=== PATIENT | female | born 1940 | race Caucasian/White ===

== ENCOUNTER 2016-10-31 09:23 | Outpatient (RCR) | payer MEDICARE, BC ==
--- OUTSIDE RECORDS SUMMARY | 2016-08-15 08:19 | XMS REPORT | Continuity of Care Document ---
Author Author [facility] Organization [facility] Address Unknown Phone Unavailable Care Team Providers Care Pan Washer Hand Name Role Phone PCP Unavailable Source Comments Some departments are not documenting in the electronic medical record. If you do not see the information that you expected, contact Release of Information in the Health Information Management department at [phone] for further assistance in locating additional records.[facility] Active Allergies and Adverse Reactions Not on File Current Medications Not on file Active Problems Not on file Most Recent Encounters Date Type Specialty Providers Description 08/14/2016 Ancillary Radiology Outpatient, Radiologist Diagnosis unknown Orders (Primary Dx) 06/25/2016 Hospital Radiology Encounter 06/25/2016 Hospital Radiology Encounter 06/25/2016 Hospital Radiology Encounter 06/25/2016 Hospital Radiology Encounter 06/18/2016 [facility] Alfredo Soliz MD Melanoma (HCC) Encounter 05/20/2016 Hospital Radiology Encounter Social History Tobacco Use Types Packs/Day Years Used Date Never Assessed Plan of Care Health Maintenance Due Date Last Done Comments Physical (Comprehensive) 1947 Exam Pertussis Vaccine 1950 Tetanus Vaccine 1956 Shingles Vaccine 1999 Osteoporosis Screening 2004 Prevnar/Pneumovax (#1) 2004 Influenza Vaccine 07/04/2016 Results from Last [address] ABDOMEN EXTERNAL IMAGING (06/25/2016 12:45 AM) Narrative This order has been auto finalized and does not contain a result. GENERAL RAD CHEST EXTERNAL IMAGING (06/25/2016 12:30 AM)Only the most recent of 3 results within the time period is included. Narrative This order has been auto finalized and does not contain a result. PATHOLOGY REPORTS FROM OUTSIDE SCAN (06/19/2016 7:18 AM) Narrative Ordered by an unspecified provider. OUTSIDE PATHOLOGY CONSULT (06/18/2016 9:03 AM) Component Value Range PATHOLOGY REPORT [facility] [email or web address] Roberto Aragon MD, PhD, Director of Anatomic Pathology Department of Pathology and Laboratory Medicine [address] [place] [id number] Surgical Pathology Office: [phone] PATHOLOGY CONSULTATION NAME: PRATIMA FRAGA SURG PATH #: [id number] MR #: [id number] ALT ID #: LOCATION: [facility] DATE OF PROCEDURE: 06/18/2016 AGE: 75 SEX: F DATE RECEIVED: 06/18/2016 : 1940 TIME RECEIVED: 09:03 PHYSICIAN: ALFREDO SOLIZ DATE OF REPORT: 06/18/2016 COPY TO: DATE OF PRINTIN06/18/2016 ################################################## ###################### Final Diagnosis: A. 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 I agree with the diagnosis of melanoma. Melanoma synoptic reporting is listed below: Procedure type: Shave biopsy Histologic type: Nodular melanoma Maximum tumor thickness: At least 5 mm Surface ulceration: Present Dermal mitotic rate: 4/mm2 Lymph-vascular invasion: Not identified Perineural invasion: Not identified Tumor regression: Not identified Satellite lesions: Not identified Tumor stage (AJCC): T4b Attestation: By this signature, I attest that I have personally formulated the final interpretation expressed in this report and that the above diagnosis is based upon my examination of the slides and/or other material indicated in this report. +++Electronically Signed Out+++ pms/06/18/2016 Interpreted by: Omar Talley MD, Attending Physician ################################################## ###################### Material Received: A: Outside Slides x4 [id number], [employer], [address] [place] [address], [place] [address] History: 75-year-old female with a clinical history of neoplasm of uncertain behavior; suspicious irregular multi-colored macule; malignant melanoma. Gross Description: A. Received are four (4) outside slides labeled "[id number]" and a properly identified surgical pathology report from [employer], [address] [place] [address], [place] [address], [place] [address] 06/18/2016 If immunohistochemical stains and/or in situ hybridization are cited in this report, the performance characteristics were determined by the Department of [facility]ology and [facility] of the [facility] ([employer] [facility]) in compliance with CLIA'88 regulations. Some of these tests rely on the use of "analyte specific reagents" and are subject to specific labeling requirements by the FDA. Known positive and negative control tissues demonstrate appropriate staining. This testing was developed by the Department of Pathology and Laboratory [facility] of the [facility]. It has not been cleared or approved by the FDA. The FDA has determined that such clearance or approval is not necessary. NM PET/CT EXTERNAL IMAGING (05/20/2016) Narrative This order has been auto finalized and does not contain a result.
--- OUTSIDE RECORDS SUMMARY | 2016-08-22 10:52 | XMS REPORT | Continuity of Care Document ---
Author Author [facility] Organization [facility] Address Unknown Phone Unavailable Care Team Providers Care Night Worker Name Role Phone PCP Unavailable Source Comments Some departments are not documenting in the electronic medical record. If you do not see the information that you expected, contact Release of Information in the Health Information Management department at [phone] for further assistance in locating additional records.[facility] Active Allergies and Adverse Reactions Not on File Current Medications Not on file Active Problems Not on file Most Recent Encounters Date Type Specialty Providers Description 08/14/2016 Ancillary Radiology Outpatient, Radiologist Diagnosis unknown Orders (Primary Dx) 06/25/2016 Hospital Radiology Encounter 06/25/2016 Hospital Radiology Encounter 06/25/2016 Hospital Radiology Encounter 06/25/2016 Hospital Radiology Encounter 06/18/2016 [facility] Alfredo Soliz MD Melanoma (HCC) Encounter Social History Tobacco Use Types Packs/Day [...] AM) Component Value Range PATHOLOGY REPORT [facility] [email or web address] Roberto Aragon MD, PhD, Director of Anatomic Pathology Department of Pathology and Laboratory Medicine [address] [place] [id number] Surgical Pathology Office: [phone] PATHOLOGY CONSULTATION NAME: PRATIMA FRAGA SURG PATH #: [id number] MR #: [id number] ALT ID #: LOCATION: [facility] DATE OF PROCEDURE: 06/18/2016 AGE: 75 SEX: F DATE RECEIVED: 06/18/2016 : 1940 TIME RECEIVED: 09:03 PHYSICIAN: ALFREDO SOLIZ DATE OF REPORT: 06/18/2016 COPY TO: DATE OF PRINTIN06/18/2016 ################################################## ###################### Final Diagnosis: A. Left central frontal scalp ([facility], [id number]; 04.09.2016): -- Ulcerated melanoma with a Breslow [...] ###################### Material Received: A: Outside Slides x4 [id number], [employer], [address] [place] [address], [place] [address] History: 75-year-old female with a clinical history of neoplasm of uncertain behavior; suspicious irregular multi-colored macule; malignant melanoma. Gross Description: A. Received are four (4) outside slides labeled "[id number]" and a properly identified surgical pathology report from [employer], [address] [place] [address] 06/18/2016 If immunohistochemical stains and/or in situ hybridization are cited in this report, the performance characteristics were determined by the Department of Pathology and Laboratory Medicine of the [facility] ([employer] [facility]) in compliance with CLIA'88 regulations. Some of these tests rely on the use of "analyte specific reagents" and are subject to specific labeling requirements by the FDA. Known positive and negative control tissues demonstrate appropriate staining. This testing was developed by the Department of Pathology and Laboratory Medicine of the [facility]. It has not been cleared or approved by the FDA. The FDA has determined that such clearance or approval is not necessary.
[2016-08-22 17:03] LABS: BASOPHILS % (AUTO) 0 % (0-10); EOSINOPHILS # (AUTO) 0.3 10^3/uL (0.0-0.3); EOSINOPHILS % (AUTO) 4 % (0-10); LYMPHOCYTES # (AUTO) 1.1 X 10^3 (1.0-4.0); LYMPHOCYTES % (AUTO) 16 % (12-44); MEAN CORPUSCULAR HEMOGLOBIN 27 PG (25-34); MEAN CORPUSCULAR HGB CONC 32 G/DL (32-36); MEAN CORPUSCULAR VOLUME 83 FL (80-99); MONOCYTES # (AUTO) 0.8 X 10^3 (0.0-1.0); MONOCYTES % (AUTO) 12 % (0-12); NEUTROPHILS # (AUTO) 4.6 X 10^3 (1.8-7.8); NEUTROPHILS % (AUTO) 69 % (42-75); PLATELET COUNT 273 10^3/uL (130-400); RED BLOOD COUNT 4.17 10^6/uL (4.35-5.85); RED CELL DISTRIBUTION WIDTH 15.2 % (10.0-14.5); WHITE BLOOD COUNT 6.7 10^3/uL (4.3-11.0)
[2016-08-22 17:37] LABS: ALBUMIN 3.6 G/DL (3.2-4.5); BILIRUBIN,TOTAL 0.6 MG/DL (0.1-1.0); CALCIUM 9.4 MG/DL (8.5-10.1); CREATININE SERUM 1.27 MG/DL (0.60-1.30); POTASSIUM 4.6 MMOL/L (3.6-5.0); TOTAL PROTEIN 7.7 G/DL (6.4-8.2)
[2016-08-23 11:18] LABS: %SAT TOTAL IRON BINDING CAPIC 10 % (15-50); TIBC 281 ug/dL (280-380)
[2016-08-26 09:36] LABS: UIBC 252 ug/dL (55-450)
[2016-08-26 09:37] LABS: FERRITIN 52 ng/mL (15-150)
[2016-09-19 16:51] LABS: BASOPHILS % (AUTO) 0 % (0-10); EOSINOPHILS # (AUTO) 0.4 10^3/uL (0.0-0.3); EOSINOPHILS % (AUTO) 6 % (0-10); LYMPHOCYTES % (AUTO) 17 % (12-44); MEAN CORPUSCULAR HEMOGLOBIN 27 PG (25-34); MEAN CORPUSCULAR HGB CONC 31 G/DL (32-36); MEAN CORPUSCULAR VOLUME 86 FL (80-99); MEAN PLATELET VOLUME 11.3 FL (7.4-10.4); MONOCYTES # (AUTO) 0.7 X 10^3 (0.0-1.0); MONOCYTES % (AUTO) 12 % (0-12); NEUTROPHILS # (AUTO) 4.1 X 10^3 (1.8-7.8); NEUTROPHILS % (AUTO) 66 % (42-75); PLATELET COUNT 238 10^3/uL (130-400); RED CELL DISTRIBUTION WIDTH 17.4 % (10.0-14.5); RETICULOCYTE % 1.28 % (0.50-2.40); WHITE BLOOD COUNT 6.3 10^3/uL (4.3-11.0)
[2016-09-19 17:26] LABS: ALBUMIN 3.2 G/DL (3.2-4.5); BILIRUBIN,TOTAL 0.4 MG/DL (0.1-1.0); CALCIUM 8.7 MG/DL (8.5-10.1); CREATININE SERUM 1.12 MG/DL (0.60-1.30); TOTAL PROTEIN 7.1 G/DL (6.4-8.2)
[2016-09-19 17:30] LABS: POTASSIUM 4.9 MMOL/L (3.6-5.0)
[2016-10-10 13:43] LABS: BASOPHILS % (AUTO) 0 % (0-10); EOSINOPHILS # (AUTO) 0.3 10^3/uL (0.0-0.3); EOSINOPHILS % (AUTO) 4 % (0-10); LYMPHOCYTES % (AUTO) 13 % (12-44); MEAN CORPUSCULAR HEMOGLOBIN 28 PG (25-34); MEAN CORPUSCULAR HGB CONC 33 G/DL (32-36); MEAN CORPUSCULAR VOLUME 85 FL (80-99); MEAN PLATELET VOLUME 10.6 FL (7.4-10.4); MONOCYTES # (AUTO) 0.7 X 10^3 (0.0-1.0); MONOCYTES % (AUTO) 9 % (0-12); NEUTROPHILS # (AUTO) 5.6 X 10^3 (1.8-7.8); NEUTROPHILS % (AUTO) 74 % (42-75); PLATELET COUNT 289 10^3/uL (130-400); RED BLOOD COUNT 3.54 10^6/uL (4.35-5.85); RED CELL DISTRIBUTION WIDTH 17.1 % (10.0-14.5); WHITE BLOOD COUNT 7.5 10^3/uL (4.3-11.0)
[2016-10-10 14:04] LABS: BILIRUBIN,TOTAL 0.8 MG/DL (0.1-1.0); CALCIUM 8.4 MG/DL (8.5-10.1); CREATININE SERUM 3.17 MG/DL (0.60-1.30); POTASSIUM 4.5 MMOL/L (3.6-5.0); TOTAL PROTEIN 6.6 G/DL (6.4-8.2)
[~2016-10-31] VITALS: Ht 157.5 cm; Wt 84.8 kg
[~2016-10-31 09:23] MED LIST: AMLO10TA2 PO; HYDR-3816 PO; LISI1TAB10 PO; METF500T4 PO; NS IV SCH; PANT40TA3 PO; PEMBROLIZUMAB IV SCH; PRAV20TA3 PO
[2016-10-31 15:55] LABS: BASOPHILS % (AUTO) 0 % (0-10); EOSINOPHILS # (AUTO) 0.4 10^3/uL (0.0-0.3); EOSINOPHILS % (AUTO) 6 % (0-10); LYMPHOCYTES # (AUTO) 0.8 X 10^3 (1.0-4.0); LYMPHOCYTES % (AUTO) 12 % (12-44); MEAN CORPUSCULAR HEMOGLOBIN 28 PG (25-34); MEAN CORPUSCULAR HGB CONC 32 G/DL (32-36); MEAN CORPUSCULAR VOLUME 89 FL (80-99); MEAN PLATELET VOLUME 10.5 FL (7.4-10.4); MONOCYTES # (AUTO) 0.7 X 10^3 (0.0-1.0); MONOCYTES % (AUTO) 10 % (0-12); NEUTROPHILS # (AUTO) 4.8 X 10^3 (1.8-7.8); NEUTROPHILS % (AUTO) 72 % (42-75); PLATELET COUNT 295 10^3/uL (130-400); RED BLOOD COUNT 3.28 10^6/uL (4.35-5.85); RED CELL DISTRIBUTION WIDTH 16.6 % (10.0-14.5); WHITE BLOOD COUNT 6.7 10^3/uL (4.3-11.0)
[2016-10-31 16:22] LABS: ALBUMIN 3.2 G/DL (3.2-4.5); BILIRUBIN,TOTAL 0.6 MG/DL (0.1-1.0); CALCIUM 8.8 MG/DL (8.5-10.1); CREATININE SERUM 0.91 MG/DL (0.60-1.30); TOTAL PROTEIN 6.8 G/DL (6.4-8.2)
[2016-11-01 16:38] LABS: FERRITIN 62 NG/ML (15-150)
[2016-11-01 16:39] LABS: %SAT TOTAL IRON BINDING CAPIC 15 % (15-50); TIBC 205 L UG/DL (280-380)
[2016-11-01 16:40] LABS: UIBC 175 UG/DL (55-450)
[2016-11-20] MEDS ORDERED: NIVOLUMAB 200 MG, NIVOLUMAB 40 MG in NS (IVPB) CANCER CENTER 50 ML IV SCH (14:24)
[2016-11-20] MEDS ORDERED: NIVOLUMAB IV SCH (16:15)
[2016-11-20] MEDS ORDERED: NS IV 500 ML (CANCER CENTER) 500 ML IV SCH (16:15)
[2016-11-20] MEDS ORDERED: NS IV SCH (16:15)
== END 2016-11-20 | disposition home or self-care (01) ==
LOC: PAR 09:23
PROVIDERS: ATTEND Internal Medicine Hematology & Oncology
DX: Z51.11 Encounter for antineoplastic chemotherapy (principal); C43.4 Malignant melanoma of scalp and neck; C78.01 Secondary malignant neoplasm of right lung; C78.02 Secondary malignant neoplasm of left lung; C77.0 Secondary and unspecified malignant neoplasm of lymph nodes of head, face and neck; D50.9 Iron deficiency anemia, unspecified; L03.116 Cellulitis of left lower limb; Z79.899 Other long term (current) drug therapy
CPT/HCPCS: 36415; 80053; 82728; 83540; 84156; 85025; 85045; 96413; 99213; 99214

== ENCOUNTER 2016-11-06 12:04 | Outpatient (RCR) | payer MEDICARE, BC ==
--- OUTSIDE RECORDS SUMMARY | 2016-08-27 12:43 | XMS REPORT | Continuity of Care Document ---
Author Author [facility] Organization [facility] Address Unknown Phone Unavailable Care Team Providers Care Insole Bottom Filler Name Role Phone PCP Unavailable Source Comments Some departments are not documenting in the electronic medical record. If you do not see the information that you expected, contact Release of Information in the Health Information Management department at [phone] for further assistance in locating additional records.[facility] Active Allergies and Adverse Reactions Not on File Current Medications Not on file Active Problems Not on file Most Recent Encounters Date Type Specialty Providers Description 08/14/2016 Ancillary Radiology Outpatient, Radiologist Diagnosis unknown Orders (Primary Dx) 06/25/2016 Hospital Radiology Encounter 06/25/2016 Hospital Radiology Encounter 06/25/2016 Hospital Radiology Encounter 06/25/2016 Hospital Radiology Encounter 06/18/2016 [facility] Alfredo Soliz MD Melanoma (HCC) Encounter Social [...] Range PATHOLOGY REPORT [facility] [email or web address] Roberto Aragon MD, PhD, Director of Anatomic Pathology Department of Pathology and Laboratory Medicine [address] [place] [id number] Surgical Pathology Office: [phone] PATHOLOGY CONSULTATION NAME: PRATIMA FRAGA SURG PATH #: [id number] MR #: [id number] ALT ID #: LOCATION: [facility] DATE OF PROCEDURE: 06/18/2016 AGE: 75 SEX: F DATE RECEIVED: 06/18/2016 : 1940 TIME RECEIVED: 09:03 PHYSICIAN: ALFREDO SOLIZ DATE OF REPORT: 06/18/2016 COPY TO: DATE OF PRINTIN06/18/2016 ################################################## ###################### Final Diagnosis: A. Left central frontal scalp ([facility], [id number]; 04.09.2016): -- Ulcerated melanoma with a Breslow [...] ###################### Material Received: A: Outside Slides x4 [id number], [employer], [address] [place] [address], [place] [address] History: 75-year-old female with a clinical history of neoplasm of uncertain behavior; suspicious irregular multi-colored macule; malignant melanoma. Gross Description: A. Received are four (4) outside slides labeled "[id number]" and a properly identified surgical pathology report from [employer], [address] [place] [address] 06/18/2016 If immunohistochemical stains and/or in situ hybridization are cited in this report, the performance characteristics were determined by the Department of Pathology and Laboratory Medicine of the [facility] ([employer] [facility]) in compliance with CLIA'88 regulations. Some of these tests rely on the use of "analyte specific reagents" and are subject to specific labeling requirements by the FDA. Known positive and negative control tissues demonstrate appropriate staining. This testing was developed by the Department of Pathology and Laboratory Medicine of the [facility]. It has not been cleared or approved by the FDA. The FDA has determined that such clearance or approval is not necessary.
[2016-10-14 16:08] LABS: CALCIUM 8.6 MG/DL (8.5-10.1); CREATININE SERUM 1.38 MG/DL (0.60-1.30); POTASSIUM 4.7 MMOL/L (3.6-5.0)
[~2016-11-06] VITALS: Ht 157.5 cm; Wt 84.8 kg
[2016-11-06] MEDS ORDERED: NS (IVPB) CANCER CENTER 250 ML ONE (14:30)
[2016-11-06] MEDS ORDERED: NIVOLUMAB 200 MG, NIVOLUMAB 40 MG in NS (IVPB) CANCER CENTER 50 ML IV SCH (14:30)
[2016-11-06 14:33] LABS: BASOPHILS % (AUTO) 0 % (0-10); EOSINOPHILS % (AUTO) 0 % (0-10); LYMPHOCYTES # (AUTO) 0.4 X 10^3 (1.0-4.0); LYMPHOCYTES % (AUTO) 7 % (12-44); MEAN CORPUSCULAR HEMOGLOBIN 29 PG (25-34); MEAN CORPUSCULAR HGB CONC 32 G/DL (32-36); MEAN CORPUSCULAR VOLUME 88 FL (80-99); MEAN PLATELET VOLUME 9.1 FL (7.4-10.4); MONOCYTES # (AUTO) 0.1 X 10^3 (0.0-1.0); MONOCYTES % (AUTO) 2 % (0-12); NEUTROPHILS # (AUTO) 5.5 X 10^3 (1.8-7.8); NEUTROPHILS % (AUTO) 91 % (42-75); PLATELET COUNT 247 10^3/uL (130-400); RED BLOOD COUNT 3.11 10^6/uL (4.35-5.85); RED CELL DISTRIBUTION WIDTH 15.8 % (10.0-14.5)
[2016-11-06 15:10] LABS: ALBUMIN 3.1 G/DL (3.2-4.5); BILIRUBIN,TOTAL 0.4 MG/DL (0.1-1.0); CALCIUM 8.6 MG/DL (8.5-10.1); CREATININE SERUM 0.95 MG/DL (0.60-1.30); POTASSIUM 4.4 MMOL/L (3.6-5.0); TOTAL PROTEIN 6.6 G/DL (6.4-8.2)
== END 2016-11-25 | disposition home or self-care (01) ==
LOC: ONC 12:04
PROVIDERS: ATTEND Internal Medicine Hematology & Oncology
DX: Z51.11 Encounter for antineoplastic chemotherapy (principal); C43.4 Malignant melanoma of scalp and neck; C78.01 Secondary malignant neoplasm of right lung; C78.02 Secondary malignant neoplasm of left lung; C77.0 Secondary and unspecified malignant neoplasm of lymph nodes of head, face and neck; D50.9 Iron deficiency anemia, unspecified; Z79.899 Other long term (current) drug therapy
CPT/HCPCS: 36415; 36591; 80048; 80053; 82274; 85025; 96413; 99213

== ENCOUNTER 2017-02-13 07:28 | Outpatient (RCR) | payer MEDICARE, BC ==
[~2017-02-13 07:28] MED LIST changes: -NS IV SCH; -PEMBROLIZUMAB IV SCH
== END 2017-04-22 | disposition home or self-care (01) ==
LOC: ONC 07:28
PROVIDERS: ATTEND Internal Medicine Hematology & Oncology
DX: Z51.0 Encounter for antineoplastic radiation therapy (principal); C43.4 Malignant melanoma of scalp and neck; C78.01 Secondary malignant neoplasm of right lung; C78.02 Secondary malignant neoplasm of left lung; C77.0 Secondary and unspecified malignant neoplasm of lymph nodes of head, face and neck; D50.9 Iron deficiency anemia, unspecified; Z79.899 Other long term (current) drug therapy
CPT/HCPCS: 36591; 77290; 77295; 77300; 77332; 77334; 77336; 77417; 77470; 99213; 99214

== ENCOUNTER 2017-02-13 10:27 | Outpatient (RCR) | payer MEDICARE, BC ==
--- OUTSIDE RECORDS SUMMARY | 2016-11-21 09:21 | XMS REPORT | Continuity of Care Document ---
Author Author [facility] Organization [facility] Address Unknown Phone Unavailable Care Team Providers Care Grooving Lathe Tender Name Role Phone PCP Unavailable Source Comments Some departments are not documenting in the electronic medical record. If you do not see the information that you expected, contact Release of Information in the Health Information Management department at [phone] for further assistance in locating additional records.[facility] Active Allergies and Adverse Reactions Not on File Current Medications Not on file Active Problems Not on file Most Recent Encounters Date Type Specialty Providers Description 10/24/2016 Telephone Oncology Olesya Hastings, naphthalene still operator Social History Tobacco Use Types Packs/Day Years Used Date Never Assessed Plan of Care Health Maintenance Due Date Last Done Comments Physical (Comprehensive) 1947 Exam Pertussis Vaccine 1950 Tetanus Vaccine 1956 Shingles Vaccine 1999 Osteoporosis Screening 2004 Prevnar/Pneumovax (#1) 2004 Influenza Vaccine 07/04/2016 Results from Last 3 Months Not on file
[2016-11-21 16:00] LABS: BASOPHILS % (AUTO) 0 % (0-10); EOSINOPHILS # (AUTO) 0.3 10^3/uL (0.0-0.3); EOSINOPHILS % (AUTO) 3 % (0-10); LYMPHOCYTES # (AUTO) 0.8 X 10^3 (1.0-4.0); LYMPHOCYTES % (AUTO) 9 % (12-44); MEAN CORPUSCULAR HEMOGLOBIN 28 PG (25-34); MEAN CORPUSCULAR HGB CONC 32 G/DL (32-36); MEAN CORPUSCULAR VOLUME 88 FL (80-99); MEAN PLATELET VOLUME 10.7 FL (7.4-10.4); MONOCYTES # (AUTO) 0.7 X 10^3 (0.0-1.0); MONOCYTES % (AUTO) 7 % (0-12); NEUTROPHILS # (AUTO) 7.2 X 10^3 (1.8-7.8); NEUTROPHILS % (AUTO) 81 % (42-75); PLATELET COUNT 253 10^3/uL (130-400); RED BLOOD COUNT 3.37 10^6/uL (4.35-5.85); RED CELL DISTRIBUTION WIDTH 14.6 % (10.0-14.5)
[2016-11-21 16:36] LABS: ALBUMIN 3.3 G/DL (3.2-4.5); BILIRUBIN,TOTAL 0.8 MG/DL (0.1-1.0); CALCIUM 8.8 MG/DL (8.5-10.1); CREATININE SERUM 1.14 MG/DL (0.60-1.30); POTASSIUM 4.1 MMOL/L (3.6-5.0); TOTAL PROTEIN 6.9 G/DL (6.4-8.2)
[2016-12-05 15:56] LABS: BASOPHILS % (AUTO) 0 % (0-10); EOSINOPHILS # (AUTO) 0.2 10^3/uL (0.0-0.3); EOSINOPHILS % (AUTO) 4 % (0-10); LYMPHOCYTES # (AUTO) 0.8 X 10^3 (1.0-4.0); LYMPHOCYTES % (AUTO) 15 % (12-44); MEAN CORPUSCULAR HGB CONC 32 G/DL (32-36); MEAN CORPUSCULAR VOLUME 89 FL (80-99); MEAN PLATELET VOLUME 10.4 FL (7.4-10.4); MONOCYTES # (AUTO) 0.6 X 10^3 (0.0-1.0); MONOCYTES % (AUTO) 11 % (0-12); NEUTROPHILS % (AUTO) 70 % (42-75); PLATELET COUNT 272 10^3/uL (130-400); RED BLOOD COUNT 3.16 10^6/uL (4.35-5.85); RED CELL DISTRIBUTION WIDTH 14.3 % (10.0-14.5); RETICULOCYTE % 1.51 % (0.50-2.40); WHITE BLOOD COUNT 5.7 10^3/uL (4.3-11.0)
[2016-12-05 16:00] LABS: MEAN CORPUSCULAR HEMOGLOBIN 28 PG (25-34)
[2016-12-05 16:51] LABS: ALBUMIN 3.4 G/DL (3.2-4.5); BILIRUBIN,TOTAL 0.5 MG/DL (0.1-1.0); CREATININE SERUM 0.99 MG/DL (0.60-1.30); POTASSIUM 4.4 MMOL/L (3.6-5.0); TOTAL PROTEIN 6.9 G/DL (6.4-8.2)
[2016-12-19 15:48] LABS: BASOPHILS % (AUTO) 0 % (0-10); EOSINOPHILS # (AUTO) 0.2 10^3/uL (0.0-0.3); EOSINOPHILS % (AUTO) 4 % (0-10); LYMPHOCYTES # (AUTO) 0.7 X 10^3 (1.0-4.0); LYMPHOCYTES % (AUTO) 14 % (12-44); MEAN CORPUSCULAR HGB CONC 32 G/DL (32-36); MEAN CORPUSCULAR VOLUME 88 FL (80-99); MEAN PLATELET VOLUME 10.5 FL (7.4-10.4); MONOCYTES # (AUTO) 0.5 X 10^3 (0.0-1.0); MONOCYTES % (AUTO) 10 % (0-12); NEUTROPHILS # (AUTO) 3.8 X 10^3 (1.8-7.8); NEUTROPHILS % (AUTO) 73 % (42-75); PLATELET COUNT 244 10^3/uL (130-400); RED BLOOD COUNT 3.09 10^6/uL (4.35-5.85); RED CELL DISTRIBUTION WIDTH 13.9 % (10.0-14.5); RETICULOCYTE % 1.25 % (0.50-2.40); WHITE BLOOD COUNT 5.2 10^3/uL (4.3-11.0)
[2016-12-19 15:51] LABS: MEAN CORPUSCULAR HEMOGLOBIN 28 PG (25-34)
[2016-12-19 16:30] LABS: ALBUMIN 3.2 G/DL (3.2-4.5); BILIRUBIN,TOTAL 0.5 MG/DL (0.1-1.0); CALCIUM 8.8 MG/DL (8.5-10.1); CREATININE SERUM 1.08 MG/DL (0.60-1.30); POTASSIUM 4.5 MMOL/L (3.6-5.0); TOTAL PROTEIN 6.3 G/DL (6.4-8.2)
[2017-01-02 16:22] LABS: BASOPHILS % (AUTO) 0 % (0-10); EOSINOPHILS # (AUTO) 0.3 10^3/uL (0.0-0.3); EOSINOPHILS % (AUTO) 3 % (0-10); LYMPHOCYTES # (AUTO) 0.7 X 10^3 (1.0-4.0); LYMPHOCYTES % (AUTO) 10 % (12-44); MEAN CORPUSCULAR HEMOGLOBIN 29 PG (25-34); MEAN CORPUSCULAR HGB CONC 33 G/DL (32-36); MEAN CORPUSCULAR VOLUME 87 FL (80-99); MEAN PLATELET VOLUME 10.7 FL (7.4-10.4); MONOCYTES # (AUTO) 0.7 X 10^3 (0.0-1.0); MONOCYTES % (AUTO) 9 % (0-12); NEUTROPHILS # (AUTO) 5.6 X 10^3 (1.8-7.8); NEUTROPHILS % (AUTO) 77 % (42-75); PLATELET COUNT 255 10^3/uL (130-400); RED BLOOD COUNT 3.32 10^6/uL (4.35-5.85); RED CELL DISTRIBUTION WIDTH 14.8 % (10.0-14.5); WHITE BLOOD COUNT 7.3 10^3/uL (4.3-11.0)
[2017-01-02 17:01] LABS: ALBUMIN 3.3 G/DL (3.2-4.5); BILIRUBIN,TOTAL 0.5 MG/DL (0.1-1.0); CALCIUM 8.9 MG/DL (8.5-10.1); CREATININE SERUM 1.39 MG/DL (0.60-1.30); POTASSIUM 4.3 MMOL/L (3.6-5.0); TOTAL PROTEIN 6.6 G/DL (6.4-8.2)
[~2017-02-13 10:27] MED LIST changes: +FERRIC CARBOXYMALTOSE (CANCER) 750 MG in NS (IVPB) CANCER CENTER 250 ML IV SCH; +NIVOLUMAB 200 MG, NIVOLUMAB 40 MG in NS (IVPB) CANCER CENTER 50 ML IV SCH; +NIVOLUMAB IV SCH; +NS IV 500 ML (CANCER CENTER) 500 ML IV SCH; +NS IV SCH
[2017-02-13 16:20] LABS: BASOPHILS % (AUTO) 0 % (0-10); EOSINOPHILS # (AUTO) 0.2 10^3/uL (0.0-0.3); EOSINOPHILS % (AUTO) 5 % (0-10); LYMPHOCYTES # (AUTO) 0.5 X 10^3 (1.0-4.0); LYMPHOCYTES % (AUTO) 12 % (12-44); MEAN CORPUSCULAR HEMOGLOBIN 29 PG (25-34); MEAN CORPUSCULAR HGB CONC 33 G/DL (32-36); MEAN CORPUSCULAR VOLUME 86 FL (80-99); MEAN PLATELET VOLUME 10.8 FL (7.4-10.4); MONOCYTES # (AUTO) 0.4 X 10^3 (0.0-1.0); MONOCYTES % (AUTO) 10 % (0-12); NEUTROPHILS # (AUTO) 3.3 X 10^3 (1.8-7.8); NEUTROPHILS % (AUTO) 74 % (42-75); PLATELET COUNT 139 10^3/uL (130-400); RED BLOOD COUNT 3.74 10^6/uL (4.35-5.85); RED CELL DISTRIBUTION WIDTH 16.3 % (10.0-14.5); WHITE BLOOD COUNT 4.4 10^3/uL (4.3-11.0)
[2017-02-13 16:47] LABS: ALBUMIN 3.1 G/DL (3.2-4.5); BILIRUBIN,TOTAL 1.7 MG/DL (0.1-1.0); CALCIUM 8.5 MG/DL (8.5-10.1); CREATININE SERUM 1.98 MG/DL (0.60-1.30); POTASSIUM 4.1 MMOL/L (3.6-5.0); TOTAL PROTEIN 5.8 G/DL (6.4-8.2)
== END 2017-02-19 | disposition home or self-care (01) ==
LOC: PAR 10:27
PROVIDERS: ATTEND Internal Medicine Hematology & Oncology
DX: Z51.11 Encounter for antineoplastic chemotherapy (principal); C43.4 Malignant melanoma of scalp and neck; C78.01 Secondary malignant neoplasm of right lung; C78.02 Secondary malignant neoplasm of left lung; C77.0 Secondary and unspecified malignant neoplasm of lymph nodes of head, face and neck; D50.9 Iron deficiency anemia, unspecified; L03.116 Cellulitis of left lower limb; Z79.899 Other long term (current) drug therapy
CPT/HCPCS: 36415; 36591; 80053; 82728; 83540; 83615; 85025; 85045; 96365; 96367; 96413; 99213

== ENCOUNTER 2017-02-27 09:39 | Outpatient (RCR) | payer MEDICARE, BC ==
[~2017-02-27 09:39] MED LIST changes: -FERRIC CARBOXYMALTOSE (CANCER) 750 MG in NS (IVPB) CANCER CENTER 250 ML IV SCH; -NIVOLUMAB 200 MG, NIVOLUMAB 40 MG in NS (IVPB) CANCER CENTER 50 ML IV SCH; -NIVOLUMAB IV SCH; -NS IV 500 ML (CANCER CENTER) 500 ML IV SCH; -NS IV SCH
== END 2017-03-20 10:16 | disposition home or self-care (01) ==
LOC: PAR 09:39
PROVIDERS: ATTEND Internal Medicine Hematology & Oncology
DX: C43.4 Malignant melanoma of scalp and neck (principal); C78.01 Secondary malignant neoplasm of right lung; C78.02 Secondary malignant neoplasm of left lung; C77.0 Secondary and unspecified malignant neoplasm of lymph nodes of head, face and neck; D50.9 Iron deficiency anemia, unspecified; L03.116 Cellulitis of left lower limb; Z79.899 Other long term (current) drug therapy
CPT/HCPCS: 99213